=== PATIENT | female | born 1980 | race Caucasian/White ===

== ENCOUNTER 2017-06-08 13:53 | Inpatient (IN) | payer OTHER ==
[~2017-06-08] VITALS: Ht 160 cm; Wt 63.5 kg
--- NOTE | ~2017-06-08 | PN ---
Unit #: [id number] #: [id number] Patient: MILAN MAYNARD [id number] [facility] [address] [place] [address] [id number] MR#: [id number] NAME: MILAN MAYNARD ROOM: 82 Age: 36 Sex: F Admission Date: 06/08/2017 : 1980 Attending Physician: Lui Mera M.D. Admitting Physician: Lui Mera M.D. Primary Care Physician: Primary Care Physician Nena JONES PROGRESS NOTES DATE 06/11/2017 DISCUSSION The patient is complaining of some depressed mood today but denies suicide ideation. Her detox is essentially complete and we are looking at probable a.m. discharge. I have told the patient to begin planning for this. Dictated by... Lui Mera M.D. CB/toya TD: 06/11/2017 16:31 JOB #: [id number] [facility] PROGRESS NOTES Page 1 of 1 X Lui Mera MD PROGRESS NOTE
--- NOTE | ~2017-06-08 | PN ---
Unit #: [id number] #: [id number] Patient: MILAN MAYNARD [id number] [facility] [address] [place] [address] [id number] MR#: [id number] NAME: MILAN MAYNARD ROOM: 82 Age: 36 Sex: F Admission Date: 06/08/2017 : 1980 Attending Physician: Lui Mera M.D. Admitting Physician: Lui Mera M.D. Primary Care Physician: Primary Care Physician Nena JONES PROGRESS NOTES DATE 06/10/2017 DISCUSSION The patient is abed, resting comfortably today. Multiple attempts to arouse her are unsuccessful. Her detox continues uneventfully. Dictated by... Lui Mera M.D. CB/payton TD: 06/10/2017 14:18 JOB #: [id number] [facility] PROGRESS NOTES Page 1 of 1 X Lui Mera MD X PROGRESS NOTE
--- NOTE | ~2017-06-08 | DS ---
Unit #: [id number] #: [id number] Patient: MILAN MAYNARD [id number] [place] [address] [id number] MR#: [id number] NAME: MILAN MAYNARD ROOM: 82 Age: 36 Sex: F Admission Date: 06/08/2017 : 1980 Discharge Date: 06/11/2017 Attending Physician: Lui Mera M.D. Primary Care Physician: Primary Care Physician No DISCHARGE SUMMARY REASON FOR ADMISSION The patient is a 36-year-old white female, admitted to the [facility] unit for opioid detox. HOSPITAL COURSE The patient was admitted to the [facility] unit and placed on routine detoxification protocol for opioids. Initial evaluation of the patient was made difficult as she was exquisitely difficult to the dose of Neurontin she had received for withdrawal symptoms. She appeared somewhat improved when seen by this physician on 06/10/2017. On 06/11/2017, the patient requested discharge and it was so ordered. FINAL DIAGNOSES Opioid use disorder; cannabis use disorder; sedative hypnotic use disorder; depressive disorder, unspecified; shoulder knee pain by history. DISPOSITION ON DISCHARGE The patient is discharged on the following medications: Nystatin swish and swallow 5 mL t.i.d. x5 days for thrush, Clinoril 200 mg b.i.d. for pain, Flexeril 10 mg at bedtime for muscle relaxation, Celexa 20 mg daily for depression, Keflex 500 mg b.i.d. for infection, and Macrodantin 100 mg b.i.d. for urinary tract infection. DISCHARGE INSTRUCTIONS No dietary or physical restrictions were placed on the patient at the time of discharge. FOLLOWUP Followup will take place through the auspices of community mental health resources. PROGNOSIS The patient's prognosis is considered fair. Dictated by... Lui Mera M.D. CB/andry TD: 06/11/2017 16:11 JOB #: [id number] Unit #: [id number] #: [id number] Patient: MILAN MAYNARD DISCHARGE SUMMARY Page 1 of 1 X Lui Mera MD DISCHARGE SUMMARY
--- NOTE | ~2017-06-08 | HP ---
Unit #: [id number] #: [id number] Patient: MOLLY MAYNARD [id number] [place] [address] [id number] MR#: [id number] NAME: MOLLY MAYNARD ROOM: P182 Age: 36 Sex: F Admission Date: 06/08/2017 : 1980 Attending Physician: Lui Mera M.D. Admitting Physician: Lui Mera M.D. Primary Care Physician: Primary Care Physician No HISTORY AND PHYSICAL HISTORY OF PRESENT ILLNESS Molly is a 36 year old admitted to [facility] because of her drug use. She snorts heroin. PAST MEDICAL HISTORY Long history of polysubstance abuse to include snorting heroin, benzodiazepines, and marijuana. PAST SURGICAL HISTORY Appendectomy. ALLERGIES Sulfa. SOCIAL HISTORY Smokes one pack per day. Denies alcohol. Admits to a history of illicit drug use to include snorting heroin and abusing benzodiazepines. FAMILY HISTORY Medically noncontributory. REVIEW OF SYSTEMS CONSTITUTIONAL: No fever or chills. HEENT: Denies any sore throat, ear pain or runny nose. CARDIOVASCULAR: Denies chest pain, irregular heart rhythm or palpitations. CHEST: Denies shortness of breath or cough. No hemoptysis. GASTROINTESTINAL: Denies nausea, vomiting, diarrhea or chronic constipation. ENDOCRINE: Denies history of increased thirst or urination. No recent significant weight loss or gain. GENITOURINARY: Denies dysuria, frequency, or hematuria. SKIN: Denies any rashes. HEMATOLOGIC: Denies history of increased bleeding or bruising. MUSCULOSKELETAL: Denies any hot, swollen joints. No generalized muscle pain. NEUROLOGIC: Denies problems with vision or speech. No frequent, severe headaches. No numbness, tingling or weakness in any extremities. Denies loss of bladder or bowel control. CURRENT MEDICATIONS 1. Detox protocol. 2. Prozac 60 mg q.a.m. 3. Sulindac 200 mg b.i.d. Unit #: [id number] #: [id number] Patient: MOLLY MAYNARD 4. Zyprexa 10 mg b.i.d. 5. Flexeril 10 mg q.h.s. p.r.n. PHYSICAL EXAMINATION GENERAL: Alert, well nourished. No apparent distress. VITAL SIGNS: Blood pressure 110/70, heart rate 80, respirations 16, and temperature 98.6. WEIGHT: 140. HEIGHT: 5 feet 3 inches. SKIN: Warm and dry without rash or lesion. HEENT: Normocephalic. TMs not viewed. Oral and nasal passages clear. Conjunctivae clear. PERRLA. EOMs intact. NECK: Supple without lymphadenopathy or thyromegaly. HEART: Regular rate and rhythm without murmur. LUNGS: Clear. ABDOMEN: Soft, nontender. : Not done. EXTREMITIES: No evidence of cyanosis, clubbing or edema. Moves all without focal deficit. NEUROLOGICAL: Grossly within normal limits. Cranial Nerves: II: Visual aviles are intact. III, IV AND : Extraocular movements are intact. Pupils are equal, round and reactive to light. V: Facial sensation is grossly normal. VII: Facial movements and expression are normal. VIII: Auditory acuity grossly intact. IX, X: Uvula is midline. Phonation is normal. XI: Patient shrugs shoulders and turns head normally. XII: Tongue protrudes in the midline. Sensory and Motor Function: Sensory and motor sensation is grossly normal. Motor: moves all extremities well. Coordination: Gait is normal. Deep Tendon Reflexes: Intact. IMPRESSION Psychiatric admission. RECOMMENDATIONS PSYCHIATRIC: Per psychiatrist. MEDICAL: I see no contraindication to participate in this facility's activities. MEDICAL PROGNOSIS Good. MEDICAL CONDITION Stable. Dictated by... Cora Avila P.A.-C. for Sommer Dye/payton TD: 06/09/2017 12:38 JOB #: [id number] Unit #: [id number] #: [id number] Patient: MOLLY MAYNARD HISTORY AND PHYSICAL Page 1 of 1 X Cora Avila HISTORY AND PHYSICAL
--- NOTE | ~2017-06-08 | CO ---
Unit #: [id number] #: [id number] Patient: MOLLY MAYNARD [id number] [place] [address] [id number] MR#: [id number] NAME: MOLLY MAYNARD ROOM: 82 Age: 36 Sex: F Admission Date: 06/08/2017 : 1980 Attending Physician: Lui Mera M.D. Primary Care Physician: Primary Care Physician No Consultation Date: 06/09/2017 CONSULTATION REPORT SUBJECTIVE Molly is a 36-year-old with a long history of illicit drug use to include snorting heroin and smoking methamphetamine. She has complained of pain and irritation along her tongue and the mucosa of her mouth. We have been asked to assess and treat. OBJECTIVE GENERAL: Alert, well nourished, in no apparent distress. VITAL SIGNS: Blood pressure 120/70, heart rate 80, respirations 16, temperature 98.6. HEENT: Normocephalic. Tongue and oral mucosa slightly irritated. No lesions are seen. Poor dental hygiene. ASSESSMENT Oral irritation most likely secondary to smoking meth. PLAN Nystatin swish and swallow 5 mL t.i.d. x3 days. Dictated by... Cora Avila P.A.-C. for Sommer Dye/andry TD: 06/11/2017 13:35 JOB #: [id number] CONSULTATION REPORT Page 1 of 1 X Cora Avila CONSULTATION REPORT
--- NOTE | ~2017-06-08 | PA ---
Unit #: [id number] #: [id number] Patient: MILAN MAYNARD [id number] [place] [address] [id number] I MR#: [id number] NAME: MILAN MAYNARD ROOM: P182 Age: 36 Sex: F Admission Date: 06/08/2017 : 1980 Date of Assessment: 06/09/2017 Attending Physician: Lui Mera M.D. Admitting Physician: Lui Mera M.D. Primary Care Physician: Primary Care Physician No PSYCHIATRIC ASSESSMENT IDENTIFYING INFORMATION The patient is a 36-year-old white female admitted to the [address] [place] [address] for opioid detox. CHIEF COMPLAINT Heroin. INFORMANT Patient, reliability good. HISTORY OF PRESENT ILLNESS The patient is a 36-year-old white female admitted reporting increased abuse of Xanax, alprazolam, and heroin. The patient reports that she was suffering from knee and shoulder pain, and that that is why she has come to this facility. The patient received a dose of Neurontin shortly prior to evaluation. She reports that she has not tolerated this medication in the past and is requesting its discontinuation. The patient denies current suicidal or homicidal ideation but as noted previously he is a less than optimal historian at this point secondary to the effects of Neurontin. She is reportedly prescribed Celexa and Prozac, but it is unclear by whom, and the patient is unable to provide this information. When seen today, the patient denies suicidal ideation but as noted previously he exhibits significant confusion related to having taken Neurontin recently. PAST PSYCHIATRIC HISTORY As above. PAST MEDICAL HISTORY The patient is complaining of shoulder and knee pain. MEDICATIONS Flexeril, diclofenac, Celexa, Prozac, Macrobid, Keflex. ALLERGIES Sulfa. FAMILY HISTORY Not obtained. SOCIAL HISTORY The patient states that she will soon be homeless. She reports substance use as noted previously and is a smoker. Unit #: [id number] #: [id number] Patient: MILAN MAYNARD MENTAL STATUS EXAMINATION Examination at this time reveals the patient to be a well-developed well-nourished white female appearing her stated age. She is in a state of some dishevelment. She is quite groggy and appears intoxicated during interview related to the effects of Neurontin. Speech is slurred and halting. There are no gross deficits in memory or cognition noted though formal testing is not possible. The patient is less than optimally cooperative during interview. She denies current suicidal or homicidal ideation or psychotic features. Judgment and insight continue to appear to be significantly impaired at this time, but the chart does not indicate any impairment of judgment and insight at the time of admission. ASSETS AND LIABILITIES The patient's assets are to be assessed. Liabilities: Lack of resources. DIAGNOSTIC IMPRESSION 1. Opioid use disorder. 2. Cannabis use disorder. 3. Sedative-hypnotic use disorder. 4. Mood disorder unspecified. 5. Shoulder and knee pain. TREATMENT PLAN The patient remains hospitalized for safety and stabilization. We are obtaining previously prescribed medications discontinuing Prozac but continuing Celexa. The patient's Neurontin will be discontinued from her [facility] detox protocol given her adverse reaction as displayed today. The patient will participate in appropriate order of milieu activities. ESTIMATED LENGTH OF STAY 3 to 5 days. Followup will take place through the auspices of community mental health resources. Dictated by... Lui Mera M.D. ART/payton TD: 06/09/2017 14:22 JOB #: [id number] PSYCHIATRIC ASSESSMENT Page 1 of 1 X Lui Mera MD X PSYCHIATRIC ASSESSMENT
--- NOTE | ~2017-06-08 | A ---
[facility] Nutrition Therapy DATE: 06/10/17 Patient: MILAN ROTHMAN Physician: LAMBERT Address: [address] [facility] Room/Bed: [address], Zip: [place] [address] Admit Date: 06/08/17 Date of : [birth year] Height: 5 3 Weight: [phone] NUTRITIONAL ASSESSMENT: REASON: 2 NUTRITIONAL RISK POINTS: UNINTENTIONAL WEIGHT LOSS, CHEWING/SWALLOWING DIFFICULTIES PATIENT ADMITTED FOR DEPRESSION AND SUBSTANCE ABUSE PMH: NONE Anthropometrics: HT: 63", WT: 140#, BMI: 24.8 Labs: 06/09/17- K: 3.3, GLU: 65, ALB: 3.2 Meds: PROZAC, ZYPREXA, FLEXERIL, DESYREL, CELEXA, DETOX PROTOCOL, MVI Assessment: PATIENT IS A 36 Y/O FEMALE ADMITTED FOR DEPRESSION AND SUBSTANCE ABUSE. PATIENT IS CURRENTLY ON MEDICAL LEAVE FROM WORK, LIVES WITH HER , SMOKES 1 PPD, HAS DAILY MARIJUANA USE, AND FREQUENT XANAX AND HEROIN USE. IT IS NOTED THAT PATIENT IS CONFUSED AND A POOR HISTORIAN. UPON ADMIT PATIENT STATED A FAIR APPETITE, NO RECENT WEIGHT CHANGES, AND SHE HADN'T SLEPT IN 2 DAYS. SHE HAS NOT BEEN EATING MUCH D/T HER ANXIETY. NURSING REPORTS GOOD PO INTAKES. THERE IS NO WEIGHT HX RECORDED IN [employer]. CURRENT PSYCH MEDS MAY CAUSE WEIGHT AND APPETITE FLUCTUATIONS. PATIENT SCORED A NUTRITIONAL RISK POINT FOR CHEWING/SWALLOWING DIFFICULTIES. SHE IS NOTED TO HAVE ABRASIONS AND PAIN IN HER MOUTH; HOWEVER SHE IS TOLERATING A REGULAR DIET WITH NO CAFFEINE ATT. THERE IS NO FURTHER SKIN BREAKDOWN OR GI ISSUES NOTED ATT. Dx: NO NUTRITION DX Intervention: REGULAR DIET, NO CAFFEINE, MEDS PER MD, DETOX, PSYCH Monitoring, Evaluation and Goals: 1. ADEQUATE PO INTAKES >50% OF MEALS 2. PREVENT, CORRECT MICRO/MACRO NUTRIENT DEFICIENCIES MONITOR: WEIGHTS, LABS, PO/FLUID INTAKES Recommendations: 1. CONTINUE REGULAR DIET WITH NO CAFFEINE TOLERATED 2. ENCOURAGE ADEQUATE PO AND FLUID INTAKES 3. OBTAIN WEIGHTS ROUTINELY (EVERY 3-4 DAYS) 4. IF PATIENT HAS C/O CHEWING OR SWALLOWING DIFFICULTIES PLEASE CONSULT HAIR WEAVER FOR FURTHER [facility] Nutrition Therapy DATE: 06/10/17 Patient: MILAN ROTHMAN Physician: LAMBERT Address: [address] [facility] Room/Bed: P182-1 [facility], Zip: [place] [address] Admit Date: 06/08/17 Date of : [birth year] Height: 5 3 Weight: [phone] TO F/U PER PROTOCOL AND PRN R/T PATIENT NOT AT NUTRITIONAL RISK ATT Respectfully, ANNY FISHER, RD, LD [facility] cc: client file
[2017-06-09 09:47] LABS: BASOPHIL% 0.4 % (0-2.5); EOSINOPHIL% 8.8 % (0.0-7.0); LYMPHOCYTE# 1.7 X10e3 (1.0-3.5); LYMPHOCYTE% 14.7 % (17.0-45.0); MEAN CELL VOLUME 90.2 FL (83-96); MEAN CORPUSCULAR HGB CONC 33.3 g/dL (30-36); MEAN PLATELET VOLUME 8.4 FL (6.5-11.5); MONOCYTE# 0.8 X10e3 (0-1.0); MONOCYTE% 6.6 % (3.0-12.0); NEUTROPHIL% 69.5 % (40-75); PLATELET COUNT 390 X10e3 (140-420); RED BLOOD COUNT 3.99 X10e (3.90-5.30); RED CELL DISTRIBUTION WIDTH 13.4 % (11.0-15.5); WHITE BLOOD COUNT 11.5 X10e3 (4.0-10.5)
[2017-06-09 09:48] LABS: DIFF IND NO
[2017-06-09 09:58] LABS: ALBUMIN SERUM 3.2 g/dL (3.5-5.0); BILIRUBIN,TOTAL 1.1 mg/dL (0.2-2.0); BUN/CREATININE RATIO 13.63; CALCIUM SERUM 8.6 mg/dL (8.4-10.2); CREATININE SERUM 1.1 mg/dL (0.6-1.4); GLOM FILT RATE Estimated 64.1 mL/min (>60); POTASSIUM 3.3 mmol/L (3.5-5.1); PROTEIN TOTAL SERUM 6.5 g/dL (6.0-8.3)
[2017-06-10 09:51] LABS: URINE APPEARANCE CLEAR; URINE BILIRUBIN NEG (NEG); URINE BLOOD NEG (NEG); URINE COLOR YELLOW; URINE GLUCOSE NEG (NEG); URINE KETONE 1+ (NEG); URINE LEUKOCYTE ESTERASE 1+ (NEG); URINE NITRATE NEG (NEG); URINE PROTEIN NEG (NEG); URINE SPECIFIC GRAVITY 1.011 (1.003-1.035); URINE UROBILINOGEN 0.2 MG/DL (NEG)
[2017-06-10 09:57] LABS: U HYALINE CASTS AUWI 0-2 /[LPF]; URINE BACTERIA AUWI NEG (NEGATIVE); URINE SQUAMOUS EPITHELIAL CELL OCC /[HPF]; UWBCS1 AUWI 0-2 (0-5)
[2017-06-10 11:49] LABS: AMPHETAMINE POS (NEG); BARBITURATES NEG (NEG); BENZODIAZEPINES POS (NEG); COCAINE NEG (NEG); MARIJUANA POS (NEG); OPIATES NEG (NEG); TRICYCLIC ANTIDEPRESSANTS POS (NEG); U METHADONE NEG (NEG)
== END 2017-06-11 16:10 | disposition home or self-care (01) | DRG 897 ==
LOC: P1E 15:59
PROVIDERS: Specialist
PROC: HZ2ZZZZ Detoxification Services for Substance Abuse Treatment (ICD-10-PCS; principal; 2017-06-08)
DX: F11.10 Opioid abuse, uncomplicated (principal); F39 Unspecified mood [affective] disorder; F13.10 Sedative, hypnotic or anxiolytic abuse, uncomplicated; F12.10 Cannabis abuse, uncomplicated; M25.519 Pain in unspecified shoulder; M25.569 Pain in unspecified knee
CPT/HCPCS: 80053; 80307; 81003; 84703; 85025; 86592